=== PATIENT | male | born 1975 | race American Indian/Alaskan Native ===

== ENCOUNTER 2020-01-20 23:11 | Emergency (ER) | payer OTHER ==
[2020-01-21 00:58] LABS: Basophils % (Auto) 0.5 % (0.0-1.8); Eosinophils % (Auto) 0.6 % (0.0-4.3); Hematocrit 42.4 % (35.5-45.6); Hemoglobin 14.1 gm/dl (11.8-15.2); Lymphocytes # (Auto) 1.1 K/mm3 (1.2-5.4); Lymphocytes % (Auto) 12.6 % (13.4-35.0); Mean Corpuscular HGB Conc 33 % (32-34); Mean Corpuscular Volume 87 fl (84-94); Monocytes # (Auto) 0.7 K/mm3 (0.0-0.8); Monocytes % (Auto) 7.9 % (0.0-7.3); Platelet Count 290 K/mm3 (140-440); Red Blood Count 4.89 M/mm3 (3.65-5.03); Red Cell Distribution Width 13.9 % (13.2-15.2)
[2020-01-21 01:18] LABS: BUN/Creatinine Ratio 14; Blood Urea Nitrogen 14 mg/dL (9-20); Calcium 9.7 mg/dL (8.4-10.2); Hemolysis Index 7
[2020-01-21 01:22] LABS: Bilirubin,Urine NEG (Negative); Blood,Urine LG (Negative); Color,Urine Red (Yellow); Urobilinogen,Urine < 2.0 mg/dL (<2.0)
[2020-01-21 01:23] LABS: RBC,Urine > 182.0 /HPF (0.0-6.0); WBC,Urine > 182.0 /HPF (0.0-6.0)
[2020-01-21] MEDS ORDERED: LIDOCAINE-MPF (1%) 10 MG/1 ML VIAL 5 ML INFILTRATI ONE (01:53)
[2020-01-21] MEDS ORDERED: SODIUM CHLORIDE 0.9% 1000 ML 1,000 ML IV ONE (01:54)
--- NOTE | 2020-01-21 02:29 | Cat Scan Report ---
CT abdomen pelvis wo con INDICATION: flank pain hematuria. TECHNIQUE: All CT scans at this location are performed using the following dose modulation technique: Automated exposure control. Helical slices were obtained through the abdomen and pelvis. No contrast is adminis tered. COMPARISON: None available. FINDINGS: Abdomen: No acute abnormality is seen in the lower chest. There is fatty infiltration of the liver. T he spleen, pancreas, adrenal glands, and small bowel show no acute abnormality. There are no renal ca lculi. There is no hydronephrosis. Pelvis: The appendix is unremarkable. There are no ureteral calculi. Urinary bladder is grossly unrem arkable. There is no adenopathy. Small lymph nodes in the pelvis. These are not pathologically enlarged. On review of bone windows, no acute osseous abnormalities are seen. IMPRESSION: 1. There is no obstruction, inflammation, or free air. There are no abnormal collections. There are n o renal or ureteral calculi. There is no hydronephrosis. There is fatty infiltration of the liver. Signer Name: Jabari Queen MD Signed: 01/21/2020 2:24 AM Workstation Name: [id number]
--- NOTE | 2020-01-21 02:39 | Emergency Department Report ---
ED General Adult HPI - General Chief complaint: Urogenital-Male Stated complaint: PAIN AND BLOOD WHILE URINATING Time Seen by Provider: 01/21/20 01:51 Source: patient Mode of arrival: Ambulatory Limitations: No Limitations - History of Present Illness Initial comments: Mr. Arroyo is a 44-year-old male who presents for hematuria and dysuria. He denies history of renal stones, no BPH,. He has had no fever no chills no nausea vomiting no abdominal pain. He does endorse 5/10 right flank pain radiating suprapubic. He has history of chronic low back pain. states symptoms 5/10 are exacerbated by voiding, and relieved by nothing. Onset/Timin -: days(s) Location: back (right flankl) Radiation: abdomen (superpubic ) Severity scale (0 -10): 4 Quality: burning, aching Consistency: intermittent Improves with: none Worsens with: other (voiding ) Associated Symptoms: denies: fever/chills, nausea/vomiting Treatments Prior to Arrival: none - Related Data Previous Rx's Medication Instructions Recorded Last Taken Type Ibuprofen [Motrin 800 MG tab] 800 mg PO Q8HR PRN #30 tablet 01/21/20 Unknown Rx levoFLOXacin [Levaquin TAB] 500 mg PO QDAY #10 tablet 01/21/20 Unknown Rx Allergies Allergy/AdvReac Type Severity Reaction Status Date / Time No Known Allergies Allergy Unverified 01/21/20 00:22 ED Review of Systems ROS: Stated complaint: PAIN AND BLOOD WHILE URINATING Other details as noted in HPI Constitutional: denies: chills, fever Eyes: denies: eye pain, eye discharge, vision change ENT: denies: ear pain, throat pain Respiratory: denies: cough, shortness of breath, wheezing Cardiovascular: denies: chest pain, palpitations Endocrine: no symptoms reported Gastrointestinal: denies: abdominal pain, nausea, diarrhea Genitourinary: urgency, dysuria, frequency, hematuria. denies: discharge, testicular pain, testicular mass Musculoskeletal: back pain (right cva tenderness). denies: joint swelling, arthralgia Skin: denies: rash, lesions Neurological: denies: headache, weakness, paresthesias Psychiatric: denies: anxiety, depression Hematological/Lymphatic: denies: easy bleeding, easy bruising ED Past Medical Hx - Past Medical History Previous Medical History?: Yes Hx Arthritis: Yes Additional medical history: Sciatica, DJD lower back - Surgical History Past Surgical History?: No - Social History Smoking Status: Never Smoker Substance Use Type: None - Medications Home Medications: Home Medications Medication Instructions Recorded Confirmed Last Taken Type Ibuprofen [Motrin 800 MG tab] 800 mg PO Q8HR PRN #30 tablet 01/21/20 Unknown Rx levoFLOXacin [Levaquin TAB] 500 mg PO QDAY #10 tablet 01/21/20 Unknown Rx ED Physical Exam - General Limitations: No Limitations General appearance: alert, in no apparent distress - Head Head exam: Present: atraumatic, normocephalic - Eye Eye exam: Present: normal appearance, PERRL, EOMI Pupils: Present: normal accommodation - ENT ENT exam: Present: mucous membranes moist - Neck Neck exam: Present: normal inspection, full ROM. Absent: tenderness - Respiratory Respiratory exam: Present: normal lung sounds bilaterally. Absent: respiratory distress, wheezes, stridor, chest wall tenderness - Cardiovascular Cardiovascular Exam: Present: regular rate, normal rhythm, normal heart sounds - GI/Abdominal GI/Abdominal exam: Present: soft, tenderness (super pubic ), normal bowel sounds. Absent: distended, guarding, rebound, rigid, bruit, hernia - Rectal Rectal exam: Present: deferred - Extremities Exam Extremities exam: Present: normal inspection, full ROM, normal capillary refill. Absent: tenderness - Back Exam Back exam: Present: full ROM, tenderness, CVA tenderness (R). Absent: CVA tenderness (L), vertebral tenderness - Neurological Exam Neurological exam: Present: alert, oriented X3, CN II-XII intact, normal gait - Psychiatric Psychiatric exam: Present: normal affect, normal mood - Skin Skin exam: Present: warm, dry, intact, normal color. Absent: rash ED Course Vital Signs 01/20/20 23:34 Temperature 99.6 F Pulse Rate 98 H Respiratory 18 Rate Blood Pressure 152/102 O2 Sat by Pulse 97 Oximetry ED Medical Decision Making - Lab Data Result diagrams: 01/21/20 00:34 01/21/20 00:34 Labs 01/21/20 01/21/20 01/21/20 00:34 00:34 Unknown WBC 8.6 RBC 4.89 Hgb 14.1 Hct 42.4 MCV 87 MCH 29 MCHC 33 RDW 13.9 Plt Count 290 Lymph % (Auto) 12.6 L [place] % (Auto) 7.9 H Eos % (Auto) 0.6 Baso % (Auto) 0.5 Lymph # 1.1 L [place] # 0.7 Eos # 0.0 Baso # 0.0 Seg Neutrophils % 78.4 H Seg Neutrophils # 6.7 Sodium 141 Potassium 4.4 Chloride 101.5 Carbon Dioxide 24 Anion Gap 20 BUN 14 Creatinine 1.0 Estimated GFR > 60 BUN/Creatinine Ratio 14 Glucose 186 H Calcium 9.7 Urine Color Red Urine Turbidity Cloudy Urine pH 6.0 Ur Specific [place] 1.019 Urine Protein 30 mg/dl Urine Glucose (UA) 50 Urine Ketones Neg Urine Blood Lg Urine Nitrite Neg Urine Bilirubin Neg Urine Urobilinogen < 2.0 Ur Leukocyte Esterase Mod Urine WBC (Auto) > 182.0 H Urine RBC (Auto) > 182.0 U Epithel Cells (Auto) 1.0 - Radiology Data Radiology results: report reviewed, image reviewed Findings [facility] [address] [place] [address] Cat Scan Report Signed Patient: PRINCE ARROYO MR#: [id number] : 1975 Acct:[id number] Age/Sex: 44 / M ADM Date: 01/20/20 Loc: ED Attending Dr: Ordering Physician: YAMIL IZQUIERDO NP Date of Service: 01/21/20 Procedure(s): CT abdomen pelvis wo con Accession Number(s): [id number] cc: YAMIL IZQUIERDO NP CT abdomen pelvis wo con INDICATION: flank pain hematuria. TECHNIQUE: All CT scans at this location are performed using the following dose modulation technique: Automated exposure control. Helical slices were obtained through the abdomen and pelvis. No contrast is administered. COMPARISON: None available. FINDINGS: Abdomen: No acute abnormality is seen in the lower chest. There is fatty infiltration of the liver. The spleen, pancreas, adrenal glands, and small bowel show no acute abnormality. There are no renal calculi. There is no hydronephrosis. Pelvis: The appendix is unremarkable. There are no ureteral hugo culi. Urinary bladder is grossly unremarkable. There is no adenopathy. Small lymph nodes in the pelvis. These are not pathologically enlarged. On review of bone windows, no acute osseous abnormalities are seen. IMPRESSION: 1. There is no obstruction, inflammation, or free air. There are no abnormal collections. There are no renal or ureteral calculi. There is no hydronephrosis. There is fatty infiltration of the liver. Signer Name: Jabari Queen MD Signed: 01/21/2020 2:24 AM - Medical Decision Making this is a UTI with hematuria, h/h is stable pt tx with rocephin ivpb, dysuria improve, no hematuria now, , CT normal no stones, mild fatty liver disease 0255: pt states all symptoms are relieved , plan: levaquin po daily , follow up with urology in 2-3 days, He will call today for confirm appointment. pt will be dc'd to home in stable condition. Critical care attestation.: If time is entered above; I have spent that time in minutes in the direct care of this critically ill patient, excluding procedure time. ED Disposition Clinical Impression: UTI (urinary tract infection) Qualifiers: Urinary tract infection type: acute cystitis Hematuria presence: with hematuria Qualified Code(s): N30.01 - Acute cystitis with hematuria Disposition: DC-01 TO HOME OR SELFCARE Is pt being admited?: No Does the pt Need Aspirin: No Condition: Stable Instructions: Urinary Tract Infection in Men (ED) Prescriptions: levoFLOXacin [Levaquin TAB] 500 mg PO QDAY #10 tablet Ibuprofen [Motrin 800 MG tab] 800 mg PO Q8HR PRN #30 tablet PRN Reason: pain Referrals: QUINN ACHARYA MD [Staff Physician] - 3-5 Days Forms: Work/School Release Form(ED) Time of Disposition: 03:06
[2020-01-21 04:01] VITALS: BP 148/84
== END 2020-01-21 03:30 | disposition home or self-care (01) ==
LOC: ED 23:11
DX: N39.0 Urinary tract infection, site not specified (principal); M19.90 Unspecified osteoarthritis, unspecified site; Z79.1 Long term (current) use of non-steroidal anti-inflammatories (NSAID); Z79.899 Other long term (current) drug therapy
CPT/HCPCS: 36415; 74176; 80048; 81001; 85025; 96372; 99284; J0696; J7030